=== PATIENT | male | born 1970 | race Caucasian/White ===

== ENCOUNTER 2023-06-04 07:44 | Day surgery (SDC) | payer OTHER ==
[~2023-06-04] VITALS: Ht 167.6 cm; Wt 92.1 kg
[2023-06-04] MEDS ORDERED: SIMETHICONE 40 MG/0.6 ML ML ONE (08:21)
[2023-06-04] MEDS ORDERED: MIDAZOLAM HCL 5 MG/5 ML VIAL ONE (08:21)
[2023-06-04] MEDS ORDERED: MEPERIDINE 100 MG INJ. 100 MG/ML VIAL ONE (08:21)
[2023-06-04 14:07] VITALS: O2SAT 99
[2023-06-04 15:01] VITALS: BP_SYST 138; PULSE 62; RESP 14
== END 2023-06-04 09:46 | disposition home or self-care (01) ==
LOC: SDS 07:44 → SMU 07:44 → SDS 09:46
PROVIDERS: ATTEND Internal Medicine
DX: Z12.11 Encounter for screening for malignant neoplasm of colon (principal); D12.3 Benign neoplasm of transverse colon; D12.4 Benign neoplasm of descending colon; K62.1 Rectal polyp; K57.30 Diverticulosis of large intestine without perforation or abscess without bleeding; K64.8 Other hemorrhoids; I10 Essential (primary) hypertension; Z79.899 Other long term (current) drug therapy
CPT/HCPCS: 45380; 45385; 99152; 88305; G0378; J2250; J2175; 45382